=== PATIENT | female | born 1950 | race Caucasian/White ===

== ENCOUNTER 2021-06-04 17:34 | Inpatient (IN) ==
[2021-06-04] MEDS ORDERED: Acetaminophen 325 MG TABLET PO PRN (22:58)
[2021-06-04] MEDS ORDERED: Naloxone 0.4 MG/ML INJ IVP PRN (22:58)
[2021-06-04] MEDS: Ondansetron ODT 4 MG TAB.RAPDIS SL PRN (23:18)
[2021-06-05 01:26] LABS: Basophils % 0.3 %; Eosinophils % 0.1 %; Hematocrit 40.8 % (35.3-44.9); Hemoglobin 12.5 g/dL (11.5-15.4); Immature Granulocytes % 0.6 % (0-4); Lymphocytes # 1.4 K/mcL (0.6-4.6); Lymphocytes % 11.4 %; Mean Corpuscular HGB Conc 30.6 g/dL (31.6-35.5); Mean Corpuscular Hemoglobin 30.4 pg (28.0-33.3); Mean Corpuscular Volume 99.3 fL (83.0-100.0); Mean Platelet Volume 9.5 fL (9.4-12.4); Monocytes # 0.9 K/mcL (0.0-1.3); Monocytes % 7.1 %; Platelet Count 359 K/mcL (140-400); Red Blood Count 4.11 M/mcL (3.82-4.97); Red Cell Distribution Width 17.2 % (11.5-14.5); Segmented Neutrophils % 80.5 %; White Blood Count 12.4 K/mcL (4.3-11.1)
[2021-06-05 01:47] LABS: Bilirubin,Total 1.4 mg/dL (0.3-1.0); Calcium 8.8 mg/dL (8.6-10.3); Globulin 2.9 g/dL (2.4-3.5); Magnesium 2.4 mg/dL (1.6-2.6); Potassium 5.7 mEq/L (3.5-5.1); Total Protein 5.9 g/dL (6.4-8.9)
[2021-06-05] MEDS: *HR* Heparin 5,000 UNIT/ML VIAL SQ SCH ×3 (05:31→20:32)
[2021-06-05] MEDS ORDERED: Albuterol 2.5 MG/3 ML NEBULIZER IH ONE (06:37)
[2021-06-05] MEDS ORDERED: Furosemide 20 MG/2 ML VIAL IVP ONE (06:39)
[2021-06-05] MEDS ORDERED: Albumin 25% 25gram/100mL 25 GM/100 ML IV.SOLN IVC ONE (06:40)
[2021-06-05] MEDS ORDERED: Calcium Gluconate 1gm/50mL 1 GM/50 ML BAG IVPB ONE (07:05)
[2021-06-05] MEDS ORDERED: SODIUM ZIRCONIUM CYCLOSILICATE 5 GM POWD.PACK PO ONE (07:58)
[2021-06-05] MEDS: Aspirin 81 MG TAB.CHEW PO SCH (09:16)
[2021-06-05 13:07] LABS: Potassium,Urine 67.7 mEq/L; Protein/Creatinine Ratio,Urine 0.38 mg/mg (0.00-0.20)
[2021-06-05 13:10] LABS: Bilirubin,Urine Negative (Negative); Blood,Urine Negative (Negative); Clarity,Urine Clear (Clear); Color,Urine Yellow (Yellow); Glucose,Urine (UA) Normal (Normal); Hyaline Casts,Urine Many per lpf (None Seen); Ketones,Urine Negative (Negative); Leukocyte Esterase,Urine Negative (Negative); Mucus,Urine Few per lpf (None-Few); Nitrite,Urine Negative (Negative); PH,Urine 5.5 pH Units (5.0-8.0); Protein,Urine 50 mg/dL (Neg-Trace); RBC,Urine 0-3 per hpf (0-3); Renal Epithelial Cells,Urine Few per hpf (None-Few); Specific Gravity,Urine 1.021 (1.010-1.025); Squamous Epithelial Cell,Urine Few per hpf (None-Few); Transitional Epi Cells,Urine Few per hpf (None-Few); Urobilinogen,Urine Normal (Normal); WBC,Urine 0-3 per hpf (0-3)
[2021-06-06] MEDS: *HR* Heparin 5,000 UNIT/ML VIAL SQ SCH ×3 (05:10→21:12)
[2021-06-06 07:26] LABS: Calcium 8.8 mg/dL (8.6-10.3); Magnesium 2.5 mg/dL (1.6-2.6); Potassium 5.5 mEq/L (3.5-5.1)
[2021-06-06] MEDS: Aspirin 81 MG TAB.CHEW PO SCH (08:25)
[2021-06-06 13:31] LABS: Hematocrit 37.3 % (35.3-44.9); Hemoglobin 11.5 g/dL (11.5-15.4); Mean Corpuscular HGB Conc 30.8 g/dL (31.6-35.5); Mean Corpuscular Hemoglobin 30.8 pg (28.0-33.3); Mean Platelet Volume 9.5 fL (9.4-12.4); Platelet Count 319 K/mcL (140-400); Red Blood Count 3.73 M/mcL (3.82-4.97); Red Cell Distribution Width 17.6 % (11.5-14.5); White Blood Count 12.1 K/mcL (4.3-11.1)
[2021-06-06 13:53] LABS: Uric Acid 15.6 mg/dL (2.3-7.6)
[2021-06-06] MEDS: Melatonin 3 MG TABLET PO PRN (21:12)
[2021-06-07 05:10] LABS: Hematocrit 37.2 % (35.3-44.9); Hemoglobin 11.6 g/dL (11.5-15.4); Mean Corpuscular HGB Conc 31.2 g/dL (31.6-35.5); Mean Corpuscular Hemoglobin 30.9 pg (28.0-33.3); Mean Corpuscular Volume 99.2 fL (83.0-100.0); Mean Platelet Volume 9.8 fL (9.4-12.4); Platelet Count 295 K/mcL (140-400); Red Blood Count 3.75 M/mcL (3.82-4.97); Red Cell Distribution Width 17.5 % (11.5-14.5); White Blood Count 11.5 K/mcL (4.3-11.1)
[2021-06-07 05:30] LABS: Calcium 8.8 mg/dL (8.6-10.3); Potassium 5.4 mEq/L (3.5-5.1)
[2021-06-07] MEDS: *HR* Heparin 5,000 UNIT/ML VIAL SQ SCH ×3 (06:33→19:21)
[2021-06-07] MEDS: Ondansetron ODT 4 MG TAB.RAPDIS SL PRN (13:10)
[2021-06-07] MEDS ORDERED: SODIUM ZIRCONIUM CYCLOSILICATE 5 GM POWD.PACK PO ONE (14:05)
[2021-06-07] MEDS ORDERED: Sodium Bicarbonate 75 MEQ in 0.45 % Sodium Chloride 1,000 ML IVC SCH (14:15)
[2021-06-07] MEDS: Sodium Bicarbonate 75 MEQ in 0.45 % Sodium Chloride 1,000 ML IVC SCH (18:32)
[2021-06-07] MEDS: Melatonin 3 MG TABLET PO PRN (20:44)
[2021-06-08 04:56] LABS: Hematocrit 35.7 % (35.3-44.9); Hemoglobin 11.4 g/dL (11.5-15.4); Mean Corpuscular HGB Conc 31.9 g/dL (31.6-35.5); Mean Corpuscular Hemoglobin 31.6 pg (28.0-33.3); Mean Corpuscular Volume 98.9 fL (83.0-100.0); Mean Platelet Volume 9.9 fL (9.4-12.4); Platelet Count 253 K/mcL (140-400); Red Blood Count 3.61 M/mcL (3.82-4.97); Red Cell Distribution Width 17.8 % (11.5-14.5); White Blood Count 10.2 K/mcL (4.3-11.1)
[2021-06-08] MEDS: *HR* Heparin 5,000 UNIT/ML VIAL SQ SCH ×2 (05:07→16:14)
[2021-06-08 05:09] LABS: Calcium 8.5 mg/dL (8.6-10.3); Potassium 4.8 mEq/L (3.5-5.1)
[2021-06-08] MEDS: Sodium Bicarbonate 75 MEQ in 0.45 % Sodium Chloride 1,000 ML IVC SCH (10:19)
[2021-06-08] MEDS: Melatonin 3 MG TABLET PO PRN (21:34)
[2021-06-09 02:40] LABS: Hematocrit 36.8 % (35.3-44.9); Hemoglobin 11.3 g/dL (11.5-15.4); Mean Corpuscular HGB Conc 30.7 g/dL (31.6-35.5); Mean Corpuscular Hemoglobin 30.9 pg (28.0-33.3); Mean Corpuscular Volume 100.5 fL (83.0-100.0); Mean Platelet Volume 9.7 fL (9.4-12.4); Platelet Count 226 K/mcL (140-400); Red Blood Count 3.66 M/mcL (3.82-4.97); Red Cell Distribution Width 18.1 % (11.5-14.5); White Blood Count 9.8 K/mcL (4.3-11.1)
[2021-06-09 03:02] LABS: Calcium 8.2 mg/dL (8.6-10.3); Magnesium 2.4 mg/dL (1.6-2.6); Potassium 4.6 mEq/L (3.5-5.1)
[2021-06-10 01:29] LABS: Calcium 8.2 mg/dL (8.6-10.3); Potassium 4.6 mEq/L (3.5-5.1)
[2021-06-10] MEDS ORDERED: Albumin 25% 25gram/100mL 25 GM/100 ML IV.SOLN IVPB ONE (16:53)
[2021-06-10] MEDS: Aspirin 81 MG TAB.CHEW PO SCH (16:54)
[2021-06-10] MEDS ORDERED: Furosemide 20 MG/2 ML VIAL IVP ONE (16:55)
[2021-06-11 05:22] LABS: Hematocrit 39.7 % (35.3-44.9); Hemoglobin 11.9 g/dL (11.5-15.4); Mean Corpuscular Hemoglobin 30.2 pg (28.0-33.3); Mean Platelet Volume 9.8 fL (9.4-12.4); Platelet Count 229 K/mcL (140-400); Red Blood Count 3.94 M/mcL (3.82-4.97); Red Cell Distribution Width 18.3 % (11.5-14.5); White Blood Count 8.7 K/mcL (4.3-11.1)
[2021-06-11 05:25] LABS: INR 1.2; Mean Corpuscular Volume 100.8 fL (83.0-100.0); Prothrombin Time 13.9 Seconds (9.4-12.1)
[2021-06-11 05:33] LABS: Basophils % 0.2 %; Eosinophils % 0.4 %; Immature Granulocytes % 0.4 % (0-4); Lymphocytes # 0.9 K/mcL (0.6-4.6); Monocytes # 0.7 K/mcL (0.0-1.3); Monocytes % 8.2 %; Neutrophils # 6.8 K/mcL (1.6-8.9); Nucleated Red Blood Cells 0.8 /100 WBC (0); Segmented Neutrophils % 79.8 %
[2021-06-11 05:45] LABS: Calcium 8.8 mg/dL (8.6-10.3); Potassium 4.4 mEq/L (3.5-5.1)
[2021-06-11 06:46] LABS: Hepatitis C Virus Antibody Nonreactive (Nonreactive)
[2021-06-11 06:48] LABS: Hepatitis A Antibody IgM Nonreactive (Nonreactive)
[2021-06-11] MEDS: Aspirin 81 MG TAB.CHEW PO SCH (08:48)
[2021-06-11 09:03] LABS: Albumin 3.7 g/dL (3.5-5.7); Albumin/Globulin Ratio 1.3 (1.1-2.2); Bilirubin,Total 1.2 mg/dL (0.3-1.0); Globulin 2.8 g/dL (2.4-3.5); Total Protein 6.5 g/dL (6.4-8.9)
[2021-06-11 11:27] LABS: Hepatitis B Core IgM Nonreactive (Nonreactive)
[2021-06-11 16:03] LABS: Troponin I 0.09 ng/mL (< 0.04)
[2021-06-11] MEDS ORDERED: SODIUM CHLORIDE/NAHCO3/KCL/PEG 4,000 ML SOLN.RECON PO ONE (17:00)
[2021-06-12 04:01] LABS: Hematocrit 33.4 % (35.3-44.9); Hemoglobin 10.3 g/dL (11.5-15.4); Mean Corpuscular HGB Conc 30.8 g/dL (31.6-35.5); Mean Corpuscular Hemoglobin 31.5 pg (28.0-33.3); Mean Platelet Volume 10.7 fL (9.4-12.4); Platelet Count 182 K/mcL (140-400); Red Blood Count 3.27 M/mcL (3.82-4.97); Red Cell Distribution Width 18.2 % (11.5-14.5)
[2021-06-12 04:03] LABS: Mean Corpuscular Volume 102.1 fL (83.0-100.0); White Blood Count 12.6 K/mcL (4.3-11.1)
[2021-06-12 07:39] LABS: Calcium 8.1 mg/dL (8.6-10.3); Magnesium 2.3 mg/dL (1.6-2.6); Potassium 4.7 mEq/L (3.5-5.1)
[2021-06-12] MEDS: Aspirin 81 MG TAB.CHEW PO SCH (09:02)
[2021-06-12] MEDS ORDERED: *HR* Propofol 200 MG/20 ML VIAL IVP ONE (14:20)
[2021-06-12] MEDS ORDERED: Lidocaine -MPF 2% 5 ML VIAL ONE (14:20)
[2021-06-13 01:39] LABS: Hematocrit 37.4 % (35.3-44.9); Hemoglobin 10.9 g/dL (11.5-15.4); Mean Corpuscular HGB Conc 29.1 g/dL (31.6-35.5); Mean Corpuscular Hemoglobin 30.4 pg (28.0-33.3); Mean Corpuscular Volume 104.5 fL (83.0-100.0); Mean Platelet Volume 10.1 fL (9.4-12.4); Platelet Count 198 K/mcL (140-400); Red Blood Count 3.58 M/mcL (3.82-4.97); Red Cell Distribution Width 18.6 % (11.5-14.5); White Blood Count 7.2 K/mcL (4.3-11.1)
[2021-06-13 02:32] LABS: Calcium 7.8 mg/dL (8.6-10.3); Potassium 4.8 mEq/L (3.5-5.1)
[2021-06-13] MEDS: Aspirin 81 MG TAB.CHEW PO SCH (08:18)
[2021-06-13 10:08] LABS: VBG HCO3 19 mEq/L (21-27); VBG PCO2 28 mmHg (41-51); VBG PH 7.44 pH Units (7.32-7.42); VBG PO2 174 mmHg (25-50)
[2021-06-13 10:19] LABS: AFP Tumor Marker Non-Pregnant 4 ng/mL (0-9)
[2021-06-13 10:25] LABS: Calcium 7.9 mg/dL (8.6-10.3); Potassium 4.3 mEq/L (3.5-5.1)
[2021-06-13 10:31] LABS: ANA IgG by ELISA NONE DETECTED (None Detected); F-Actin (sm muscle) Ab IgG 21 Units (0-19); Serine Protease-3 Antibody 2 AU/mL (0-19)
[2021-06-13] MEDS: Furosemide 20 MG/2 ML VIAL IVP SCH (16:04)
[2021-06-13] MEDS: Albumin 25% 25gram/100mL 25 GM/100 ML IV.SOLN IVPB SCH (16:05)
[2021-06-14] MEDS ORDERED: Furosemide 20 MG/2 ML VIAL IVP SCH (00:30)
[2021-06-14 01:16] LABS: Basophils % 0.3 %; Hematocrit 36.8 % (35.3-44.9); Hemoglobin 11.3 g/dL (11.5-15.4); Immature Granulocytes % 0.3 % (0-4); Lymphocytes # 0.9 K/mcL (0.6-4.6); Mean Corpuscular HGB Conc 30.7 g/dL (31.6-35.5); Mean Corpuscular Hemoglobin 30.6 pg (28.0-33.3); Mean Corpuscular Volume 99.7 fL (83.0-100.0); Monocytes # 0.7 K/mcL (0.0-1.3); Monocytes % 8.7 %; Nucleated Red Blood Cells 0.5 /100 WBC (0); Platelet Count 220 K/mcL (140-400); Red Blood Count 3.69 M/mcL (3.82-4.97); Red Cell Distribution Width 18.6 % (11.5-14.5); Segmented Neutrophils % 78.7 %; White Blood Count 7.7 K/mcL (4.3-11.1)
[2021-06-14 01:34] LABS: Calcium 8.2 mg/dL (8.6-10.3); Potassium 4.3 mEq/L (3.5-5.1)
[2021-06-14] MEDS: Albumin 25% 25gram/100mL 25 GM/100 ML IV.SOLN IVPB SCH ×2 (04:30→15:11)
[2021-06-14] MEDS: Aspirin 81 MG TAB.CHEW PO SCH (08:21)
[2021-06-14] MEDS: Furosemide 20 MG/2 ML VIAL IVP SCH (08:47)
[2021-06-14 09:16] LABS: Smooth Muscle Ab Titer IgG <1:20 (<1:20)
[2021-06-14] MEDS ORDERED: Furosemide 40 MG/4 ML VIAL IVP ONE (12:23)
[2021-06-14] MEDS ORDERED: Furosemide 20 MG/2 ML VIAL IVP ONE (21:03)
[2021-06-15 03:35] LABS: Hematocrit 43.1 % (35.3-44.9); Hemoglobin 12.8 g/dL (11.5-15.4); Mean Corpuscular HGB Conc 29.7 g/dL (31.6-35.5); Mean Corpuscular Hemoglobin 30.2 pg (28.0-33.3); Mean Corpuscular Volume 101.7 fL (83.0-100.0); Mean Platelet Volume 10.7 fL (9.4-12.4); Platelet Count 218 K/mcL (140-400); Red Blood Count 4.24 M/mcL (3.82-4.97); Red Cell Distribution Width 18.5 % (11.5-14.5)
[2021-06-15 03:43] LABS: White Blood Count 20.4 K/mcL (4.3-11.1)
[2021-06-15] MEDS: Albumin 25% 25gram/100mL 25 GM/100 ML IV.SOLN IVPB SCH (04:55)
[2021-06-15 07:04] LABS: Basophils % 0.2 %; Hematocrit 44.7 % (35.3-44.9); Immature Granulocytes % 0.7 % (0-4); Lymphocytes # 1.2 K/mcL (0.6-4.6); Lymphocytes % 5.6 %; Mean Corpuscular HGB Conc 29.1 g/dL (31.6-35.5); Mean Corpuscular Hemoglobin 29.7 pg (28.0-33.3); Mean Corpuscular Volume 102.1 fL (83.0-100.0); Mean Platelet Volume 10.7 fL (9.4-12.4); Monocytes # 0.7 K/mcL (0.0-1.3); Monocytes % 3.3 %; Neutrophils # 18.6 K/mcL (1.6-8.9); Nucleated Red Blood Cells 0.5 /100 WBC (0); Platelet Count 209 K/mcL (140-400); Red Blood Count 4.38 M/mcL (3.82-4.97); Red Cell Distribution Width 18.6 % (11.5-14.5); Segmented Neutrophils % 90.2 %; White Blood Count 20.6 K/mcL (4.3-11.1)
[2021-06-15] MEDS: Aspirin 81 MG TAB.CHEW PO SCH (07:14)
[2021-06-15] MEDS ORDERED: Furosemide 40 MG/4 ML VIAL IVP ONE (08:33)
[2021-06-15] MEDS ORDERED: Piperacillin/Tazobactam 3.375 GM in 0.9 % Sodium Chloride Mini Bag 100 ML IVPB ONE (08:33)
[2021-06-15 08:53] LABS: Calcium 8.3 mg/dL (8.6-10.3); Potassium 5.2 mEq/L (3.5-5.1)
[2021-06-15] MEDS: Furosemide 20 MG/2 ML VIAL IVP SCH (09:21)
[2021-06-15] MEDS ORDERED: D5% in Water 1,000 ML IVC PRN (10:48)
[2021-06-15] MEDS ORDERED: Dextrose Gel 15 GM/37.5 ML TUBE PO PRN ×2 (10:48)
[2021-06-15] MEDS: *HR* Dextrose 50 % in Water (Syg) 50 ML SYRINGE IVP PRN ×4 (11:12→18:49)
[2021-06-15 12:45] LABS: ABG Base Excess -5 mEq/L (-2 to 3); ABG HCO3 19 mEq/L (21-27); ABG Oxygen Saturation 96 % (95-98); ABG PCO2 31 mmHg (35-45); ABG PO2 82 mmHg (85-104); ABG TCO2 20 mEq/L (20-26)
[2021-06-15] MEDS ORDERED: Furosemide 40 MG/4 ML VIAL IVP SCH (15:00)
[2021-06-15] MEDS: Furosemide 60 MG in 0.9 % Sodium Chloride 50 ML IV SCH ×2 (15:58→19:15)
[2021-06-15] MEDS: Piperacillin/Tazobactam 3.375 GM in 0.9 % Sodium Chloride Mini Bag 100 ML IVPB SCH (20:36)
[2021-06-15 21:29] LABS: Bilirubin,Urine Negative (Negative); Blood,Urine Trace (Negative); Clarity,Urine Clear (Clear); Color,Urine Light-Yellow (Yellow); Glucose,Urine (UA) Normal (Normal); Hyaline Casts,Urine Few per lpf (None Seen); Ketones,Urine Negative (Negative); Leukocyte Esterase,Urine Negative (Negative); Nitrite,Urine Negative (Negative); Protein,Urine Trace mg/dL (Neg-Trace); Specific Gravity,Urine 1.011 (1.010-1.025); Squamous Epithelial Cell,Urine Few per hpf (None-Few); Urobilinogen,Urine Normal (Normal); WBC,Urine 0-3 per hpf (0-3)
[2021-06-16 04:06] LABS: Basophils % 0.1 %; Hematocrit 36.3 % (35.3-44.9); Immature Granulocytes % 0.6 % (0-4); Lymphocytes # 0.8 K/mcL (0.6-4.6); Lymphocytes % 5.2 %; Mean Corpuscular HGB Conc 30.9 g/dL (31.6-35.5); Mean Corpuscular Hemoglobin 29.9 pg (28.0-33.3); Mean Corpuscular Volume 97.1 fL (83.0-100.0); Mean Platelet Volume 10.6 fL (9.4-12.4); Monocytes # 0.4 K/mcL (0.0-1.3); Monocytes % 2.6 %; Neutrophils # 14.2 K/mcL (1.6-8.9); Nucleated Red Blood Cells 0.4 /100 WBC (0); Platelet Count 198 K/mcL (140-400); Red Blood Count 3.74 M/mcL (3.82-4.97); Red Cell Distribution Width 18.1 % (11.5-14.5); Segmented Neutrophils % 91.5 %; White Blood Count 15.5 K/mcL (4.3-11.1)
[2021-06-16 04:07] LABS: Hemoglobin 11.2 g/dL (11.5-15.4)
[2021-06-16 04:14] LABS: INR 1.9; Prothrombin Time 20.8 Seconds (9.4-12.1)
[2021-06-16 05:27] LABS: Calcium 7.8 mg/dL (8.6-10.3); Potassium 3.4 mEq/L (3.5-5.1)
[2021-06-16] MEDS ORDERED: 0.9 % Sodium Chloride 250 ML IVC PRN (07:34)
[2021-06-16] MEDS ORDERED: 0.9 % Sodium Chloride 1,000 ML PRIME SCH (07:45)
[2021-06-16] MEDS ORDERED: *HR* Heparin 10,000 UNIT/10 ML VIAL IV PRN (08:03)
[2021-06-16] MEDS: Aspirin 81 MG TAB.CHEW PO SCH (08:47)
[2021-06-16] MEDS ORDERED: Albumin 25% 25gram/100mL 25 GM/100 ML IV.SOLN IVPB PRN (08:58)
[2021-06-16] MEDS: Piperacillin/Tazobactam 3.375 GM in 0.9 % Sodium Chloride Mini Bag 100 ML IVPB SCH ×2 (08:59→21:30)
[2021-06-16] MEDS: Furosemide 60 MG in 0.9 % Sodium Chloride 50 ML IV SCH ×4 (10:53→22:04)
[2021-06-16] MEDS: Pantoprazole 40 MG VIAL IVP SCH ×2 (12:22→15:53)
[2021-06-16 17:59] LABS: Hepatitis B Surface Antibody < 3.10 mIU/mL
[2021-06-16] MEDS: *HR* FentaNYL (PF) 100 MCG/2 ML VIAL IVP PRN (18:08)
[2021-06-16 18:10] LABS: Hepatitis B Surface Antigen Nonreactive (Nonreactive)
[2021-06-17 00:54] LABS: Basophils % 0.1 %; Hematocrit 34.5 % (35.3-44.9); Hemoglobin 10.4 g/dL (11.5-15.4); Immature Granulocytes % 0.4 % (0-4); Lymphocytes # 0.9 K/mcL (0.6-4.6); Lymphocytes % 7.9 %; Mean Corpuscular HGB Conc 30.1 g/dL (31.6-35.5); Mean Corpuscular Hemoglobin 29.5 pg (28.0-33.3); Mean Corpuscular Volume 97.7 fL (83.0-100.0); Mean Platelet Volume 11.2 fL (9.4-12.4); Monocytes # 0.4 K/mcL (0.0-1.3); Monocytes % 3.7 %; Neutrophils # 10.5 K/mcL (1.6-8.9); Nucleated Red Blood Cells 0.2 /100 WBC (0); Platelet Count 154 K/mcL (140-400); Red Blood Count 3.53 M/mcL (3.82-4.97); Red Cell Distribution Width 18.2 % (11.5-14.5); Segmented Neutrophils % 87.9 %; White Blood Count 11.9 K/mcL (4.3-11.1)
[2021-06-17 01:08] LABS: Calcium 7.6 mg/dL (8.6-10.3); Potassium 2.8 mEq/L (3.5-5.1)
[2021-06-17] MEDS: Aspirin 81 MG TAB.CHEW PO SCH (08:14)
[2021-06-17] MEDS: *HR* FentaNYL (PF) 100 MCG/2 ML VIAL IVP PRN ×3 (08:51→20:42)
[2021-06-17] MEDS: Pantoprazole 40 MG VIAL IVP SCH ×2 (08:51→16:33)
[2021-06-17] MEDS: Potassium Chloride Elixir 20 MEQ/15 ML UDC PO SCH (12:21)
[2021-06-17] MEDS: Piperacillin/Tazobactam 3.375 GM in 0.9 % Sodium Chloride Mini Bag 100 ML IVPB SCH ×2 (12:55→20:31)
[2021-06-18 04:41] LABS: Hematocrit 36.3 % (35.3-44.9); Hemoglobin 10.5 g/dL (11.5-15.4); Mean Corpuscular HGB Conc 28.9 g/dL (31.6-35.5); Mean Corpuscular Hemoglobin 29.1 pg (28.0-33.3); Mean Corpuscular Volume 100.6 fL (83.0-100.0); Platelet Count 123 K/mcL (140-400); Red Blood Count 3.61 M/mcL (3.82-4.97); Red Cell Distribution Width 18.6 % (11.5-14.5); White Blood Count 14.1 K/mcL (4.3-11.1)
[2021-06-18 05:11] LABS: Calcium 7.7 mg/dL (8.6-10.3); Potassium 3.5 mEq/L (3.5-5.1)
[2021-06-18] MEDS: Aspirin 81 MG TAB.CHEW PO SCH (08:43)
[2021-06-18] MEDS: Piperacillin/Tazobactam 3.375 GM in 0.9 % Sodium Chloride Mini Bag 100 ML IVPB SCH ×2 (08:51→20:26)
[2021-06-18] MEDS: Pantoprazole 40 MG VIAL IVP SCH ×2 (09:02→16:40)
[2021-06-18] MEDS: D5% in Water 1,000 ML IVC SCH ×2 (09:12→23:25)
[2021-06-18] MEDS: *HR* FentaNYL (PF) 100 MCG/2 ML VIAL IVP PRN (16:48)
[2021-06-18] MEDS ORDERED: Piperacillin/Tazobactam 3.375 GM VIAL ONE (20:26)
[2021-06-19 04:01] LABS: Calcium 7.9 mg/dL (8.6-10.3); Potassium 3.6 mEq/L (3.5-5.1)
[2021-06-19] MEDS: Aspirin 81 MG TAB.CHEW PO SCH (07:27)
[2021-06-19] MEDS: Pantoprazole 40 MG VIAL IVP SCH (07:36)
[2021-06-19] MEDS: Piperacillin/Tazobactam 3.375 GM in 0.9 % Sodium Chloride Mini Bag 100 ML IVPB SCH (09:08)
[2021-06-19] MEDS ORDERED: *HR* LORazepam 2 MG/ML VIAL IVP PRN (12:21)
[2021-06-19] MEDS ORDERED: Saliva Stimulant 44.3ml BOTTLE PO PRN (12:21)
[2021-06-19 12:31] VITALS: BP 115/77; PULSE 96; TEMP 98.7; O2SAT 94
[2021-06-19] MEDS: *HR* FentaNYL (PF) 100 MCG/2 ML VIAL IVP PRN ×2 (12:35→14:13)
[2021-06-19] MEDS ORDERED: Artificial Tears SOLN 15 ML BOTTLE BOTH EYES SCH (21:00)
[2021-06-21 00:33] LABS: ANCA IFA Titer <1:20 (<1:20)
[2021-06-21 11:03] LABS: ANCA IFA Pattern NONE DETECTED (None Detected); Serine Protease-3 Antibody 3 AU/mL (0-19)
== END 2021-06-19 14:28 | disposition expired ==
LOC: 2ANU → SUATTDRO 06-05 01:08 → 2NNU 06-15 18:32 → 2ANU 06-19 13:48
PROVIDERS: ADMIT General Practice; ATTEND Internal Medicine
PROC: ENDOEBX (2021-06-12 13:45)